=== PATIENT | male | born 1980 | race Caucasian/White ===

== ENCOUNTER → 2016-10-10 | Outpatient (REF) | payer OTHER ==
[2016-10-10 12:56] LABS: INR 0.95
[2016-10-14 00:07] LABS: BLASTOMYCES ANTIBODY LEVEL Negative (Neg:<1:1); CRYPTOCOCCUS ANTIGEN SER Negative (Negative); HISTOPLASMOSIS ANTIBODY Negative (Neg:<1:1)
== END ==
LOC: M LAB REF 11:55
PROVIDERS: ATTEND Internal Medicine Pulmonary Disease
DX: R91.1 Solitary pulmonary nodule (principal)

== ENCOUNTER → 2016-10-27 | Outpatient (CLI) | payer OTHER ==
[~2016-10-27] MED LIST: ADV100INH INH; ALBU17IN INH; BUSP10TA PO; EFFE150C PO; LIDOCAINE 1% MDV 20ML VIAL As Ordered ONE; VITA100067 PO; ZYRT10CA PO
--- NOTE | 2016-10-27 12:09 | REP ---
CHEST, SINGLE VIEW: PA expiratory view of the chest is performed status post right lung biopsy. No pneumothorax is seen. No acute infiltrate is seen. Heart is not enlarged. IMPRESSION: No pneumothorax status post right lung biopsy. Signed by Randy Enrique MD 10/27/2016 05:23 P
--- NOTE | 2016-10-27 21:05 | REP ---
CT GUIDED RIGHT LOWER LOBE LUNG BIOPSY: The procedure was performed under the direct supervision of Dr. Enrique. The patient has a history of a 1.4 cm pleural based right lower lobe nodule seen on a previous CAT scan from [facility] performed on 09/13/2016. The risks and benefits of the procedure were explained to the patient and informed consent was obtained. The right lower lobe lung nodule was localized using CT guidance. The skin was prepped and draped in a sterile fashion. 1% Xylocaine was used as a local anesthetic. Using CT guidance a 19/20 gauge coaxial needle biopsy system was inserted and then advanced into the nodule. 3 core biopsy samples were obtained and sent to the lab. The patient tolerated the procedure well and there were no immediate complications. After the appropriate amount of monitored convalescence the patient was discharged from the department. Reviewed by ZENA Carrion 10/30/2016 04:40 PEdited and Signed by Randy Enrique MD 10/30/2016 04:41 P
== END ==
LOC: M RADPRO 08:02
PROVIDERS: ATTEND Internal Medicine Pulmonary Disease
DX: R91.1 Solitary pulmonary nodule (principal); D38.1 Neoplasm of uncertain behavior of trachea, bronchus and lung; F17.290 Nicotine dependence, other tobacco product, uncomplicated; Z79.899 Other long term (current) drug therapy

== ENCOUNTER → 2016-11-17 | Outpatient (CLI) | payer OTHER ==
[~2016-11-17] MED LIST changes: -LIDOCAINE 1% MDV 20ML VIAL As Ordered ONE; +METHACHOLINE KIT (J7674) INH ONE
--- NOTE | 2016-11-17 09:38 | PFTRPT ---
Tech: Jody MORLEY RRT Age: 36 Sex: Male Race: Height: 69.00 Inches Weight: 202.00 Lbs BSA: 2.07 Diagnosis: R94.2 METHACHOLINE CHALLENGE REPORT: ORDERING PROVIDER: Ant Morrison MD DATE OF SERVICE: 11/17/16 INTERPRETATION: The study was of excellent technical quality. Under protocol, methacholine was administered. At a dose of 10 mg (63.875 CDUs), a 26% decline in the FEV1 was noted. The PC20 of 3.40 is significant. Flow rates returned to baseline post bronchodilator administration. IMPRESSION: Positive methacholine challenge study. MTDD
== END ==
LOC: M CARPUL 11-14 12:33
PROVIDERS: ATTEND Internal Medicine Pulmonary Disease
DX: R94.2 Abnormal results of pulmonary function studies (principal)

== ENCOUNTER 2017-01-05 12:12 | Outpatient (CLI) | payer OTHER ==
[~2017-01-05] VITALS: Ht 175.3 cm; Wt 92.5 kg
[~2017-01-05 12:12] MED LIST changes: -METHACHOLINE KIT (J7674) INH ONE
[2017-01-05] MEDS ORDERED: NS 1,000 ML IV ONE (12:30)
[2017-01-05] MEDS ORDERED: PROPOFOL 200 MG/20 ML VIAL As Ordered ONE (12:45)
--- NOTE | 2017-01-05 13:05 | ROOR ---
Patient Name: Dustin Vital Procedure Date: 01/05/2017 12:44 PM Date of : 1980 Age: 36 Room: [facility] Gender: Male Note Status: Finalized Procedure: Total Colonoscopy to Cecum + Bx. To r/o Microscopic Colitis Indications: Clinically significant diarrhea of unexplained origin Providers: Edwar Elliott MD Referring MD: PAULETTE AGEE MD Requesting Provider: Medicines: Monitored Anesthesia Care Complications: No immediate complications. Procedure: Pre-Anesthesia Assessment: - The heart rate, respiratory rate, oxygen saturations, blood pressure, adequacy of pulmonary ventilation, and response to care were monitored throughout the procedure. The Colonoscope was introduced through the anus and advanced to the cecum, identified by appendiceal orifice and ileocecal valve. The colonoscopy was performed without difficulty. The patient tolerated the procedure well. The quality of the bowel preparation was excellent. Findings: The perianal and digital rectal examinations were normal. Non-bleeding internal hemorrhoids were found during retroflexion. The hemorrhoids were small and Grade I (internal hemorrhoids that do not prolapse). No other significant abnormalities were identified in a careful examination of the remainder of the colon. The exam was otherwise without abnormality on direct and retroflexion views. Biopsies for histology were taken with a cold forceps from the ascending colon, transverse colon and descending colon for evaluation of microscopic colitis. The exam was otherwise without abnormality on direct and retroflexion views. Impression: - Non-bleeding internal hemorrhoids. - The examination was otherwise normal on direct and retroflexion views. - The examination was otherwise normal on direct and retroflexion views. - Biopsies were taken with a cold forceps from the ascending colon, transverse colon and descending colon for evaluation of microscopic colitis. - The exam was otherwise normal to the cecum. Recommendation: - Patient has a contact number available for emergencies. The signs and symptoms of potential delayed complications were discussed with the patient. Return to normal activities tomorrow. Written discharge instructions were provided to the patient. - High fiber diet. - Discharge patient to home. - Continue present medications. - Await pathology results. - Telephone GI clinic for pathology results in 1 week. - Repeat colonoscopy for symptoms only. - Return to referring physician. - The findings and recommendations were discussed with the patient's family. Edwar Elliott MD Edwar Elliott MD 01/05/2017 1:05:47 PM This report has been signed electronically. Number of Addenda: 0 Note Initiated On: 01/05/2017 12:44 PM Estimated Blood Loss: Estimated blood loss: none.
[2017-01-05 13:31] VITALS: BP 138/97
== END 2017-01-05 13:36 | disposition home or self-care (01) ==
LOC: M OPP 12:12
PROVIDERS: ATTEND Internal Medicine Gastroenterology
DX: R19.7 Diarrhea, unspecified (principal); K64.0 First degree hemorrhoids; I10 Essential (primary) hypertension; F41.9 Anxiety disorder, unspecified; F32.9 Major depressive disorder, single episode, unspecified; F43.10 Post-traumatic stress disorder, unspecified; J45.909 Unspecified asthma, uncomplicated; G47.30 Sleep apnea, unspecified; E29.1 Testicular hypofunction; F17.220 Nicotine dependence, chewing tobacco, uncomplicated; Z79.899 Other long term (current) drug therapy; Z80.0 Family history of malignant neoplasm of digestive organs

== ENCOUNTER → 2017-05-11 | Outpatient (CLI) | payer OTHER | LOC: M RAD 17:01 | DX: R91.1 Solitary pulmonary nodule (principal) | CPT/HCPCS: 71250 ==